=== PATIENT | female | born 1975 | race Caucasian/White ===

== ENCOUNTER 2020-08-22 06:03 | Emergency (ER) | payer OTHER ==
[2020-08-22 06:22] VITALS: BP 140/72; PULSE 81; TEMP 98.4; BMI 29.3
[2020-08-22] MEDS ORDERED: LACTATED RINGERS SOLUTION 1000 ML INFUS.BAG IV ONE (08:00)
[2020-08-22 08:29] LABS: BASO % 0.4 % (0-2.0); EOS % 1.1 % (0-4.5); HEMATOCRIT 33.1 % (32.4-45.2); HEMOGLOBIN 10.6 GM/dL (10.7-15.3); LYMPH % 21.5 % (8-40); MCH 23.6 pg (25.7-33.7); MCHC 31.9 g/dl (32.0-36.0); MONO % 5.8 % (3.8-10.2); NEUT % 71.2 % (42.8-82.8); PLATELET COUNT 377 K/MM3 (134-434); RBC 4.48 M/mm3 (3.60-5.2); RDW 16.5 % (11.6-15.6); WHITE BLOOD COUNT 4.3 K/mm3 (4.0-10.0)
[2020-08-22 08:49] LABS: CHLORIDE 107 mmol/L (98-107); SODIUM 136 mmol/L (136-145)
[2020-08-22 08:51] LABS: ALBUMIN 3.2 g/dl (3.4-5.0); ANION GAP 5 MMOL/L (8-16); BLOOD UREA NITROGEN 13.7 mg/dL (7-18); CALCIUM 8.6 mg/dL (8.5-10.1); CO2 24 mmol/L (21-32); GLUCOSE,RANDOM 286 mg/dL (74-106)
[2020-08-22 08:54] LABS: SGPT/ALT 21 U/L (13-61)
[2020-08-22 08:55] LABS: CREATININE 0.8 mg/dL (0.55-1.3); SGOT/AST 14 U/L (15-37)
[2020-08-22 08:56] LABS: BILIRUBIN,TOTAL 0.2 mg/dL (0.2-1); TOT PROT 7.6 g/dl (6.4-8.2)
[2020-08-22 08:57] LABS: ALK PHOS 85 U/L (45-117)
== END 2020-08-22 10:36 | disposition home or self-care (01) ==
LOC: JER 06:03
DX: R53.1 Weakness (principal); R73.9 Hyperglycemia, unspecified; H81.399 Other peripheral vertigo, unspecified ear
CPT/HCPCS: 36415; 80053; 82962; 84484; 85025; 93005; 93010; 99284-25

== ENCOUNTER 2021-06-19 09:29 | Observation (INO) | payer SELFPAY ==
[2021-06-19 09:46] VITALS: BMI 28.7
[2021-06-19] MEDS ORDERED: ACETAMINOPHEN 500 MG TABLET (FP) PO ONE (10:35)
[2021-06-19] MEDS ORDERED: ACETAMINOPHEN 325 MG TABLET (FP) ONE (10:54)
[2021-06-19 11:18] LABS: BASO % 0.5 % (0-2.0); EOS % 2.8 % (0-4.5); HEMATOCRIT 29.6 % (32.4-45.2); HEMOGLOBIN 9.3 GM/dL (10.7-15.3); LYMPH % 23.8 % (8-40); MCH 23.1 pg (25.7-33.7); MCHC 31.3 g/dl (32.0-36.0); MEAN CELL VOLUME 73.9 fl (80-96); MONO % 5.6 % (3.8-10.2); NEUT % 67.3 % (42.8-82.8); PLATELET COUNT 500 10^3/uL (134-434); RBC 4.01 M/mm3 (3.60-5.2); WHITE BLOOD COUNT 9.8 K/mm3 (4.0-10.0)
[2021-06-19 11:25] LABS: INR 1.03 (0.83-1.09); PROTHROMBIN TIME (PATIENT) 11.9 SEC (9.7-13.0)
[2021-06-19 11:28] LABS: ACTIVATED PTT 31.7 SECONDS (25.2-36.5)
[2021-06-19 11:30] LABS: CALCIUM 8.9 mg/dL (8.5-10.1)
[2021-06-19 11:31] LABS: BLOOD UREA NITROGEN 17.9 mg/dL (7-18)
[2021-06-19 11:34] LABS: CREATININE 0.8 mg/dL (0.55-1.3)
[2021-06-19 11:35] LABS: TOT PROT 7.1 g/dl (6.4-8.2)
[2021-06-19 11:36] LABS: BILIRUBIN,TOTAL 0.2 mg/dL (0.2-1)
[2021-06-19 11:39] LABS: N-TERMINAL BNP 213.1 pg/ml (5-125)
[2021-06-19] MEDS ORDERED: ASPIRIN 81 MG CHEWABLE TABLETS PO ONE (13:32)
[2021-06-19] MEDS ORDERED: ASPIRIN 81 MG CHEWABLE TABLETS ONE (13:47)
[2021-06-19] MEDS ORDERED: ACETAMINOPHEN 325 MG TABLET (FP) PO PRN (15:08)
[2021-06-19] MEDS ORDERED: LOSARTAN POTASSIUM 50 MG TABLET PO SCH (15:15)
[2021-06-19] MEDS ORDERED: FAMOTIDINE 20 MG TABLET PO SCH (15:15)
[2021-06-19] MEDS ORDERED: LOSARTAN POTASSIUM 50 MG TABLET ONE (16:19)
[2021-06-19] MEDS ORDERED: FAMOTIDINE 20 MG TABLET ONE (16:19)
[2021-06-19] MEDS ORDERED: HEPARIN NA (PORCINE) 5,000 UNITS/ML 1ML VIAL IVPUSH PRN ×2 (17:39)
[2021-06-19] MEDS ORDERED: HEPARIN NA (PORCINE) 5,000 UNITS/ML 1ML VIAL IVPUSH ONE (17:39)
[2021-06-19] MEDS ORDERED: CLOPIDOGREL BISULFATE 300 MG TABLET PO ONE (17:39)
[2021-06-19] MEDS ORDERED: ATORVASTATIN CA 40 MG TABLET (FP) PO ONE (17:42)
[2021-06-19] MEDS ORDERED: CLOPIDOGREL BISULFATE 300 MG TABLET ONE (17:53)
[2021-06-19] MEDS ORDERED: HEPARIN NA (PORCINE) 5,000 UNITS/ML 1ML VIAL ONE (17:54)
[2021-06-19] MEDS ORDERED: ATORVASTATIN CA 40 MG TABLET (FP) ONE (18:02)
[2021-06-19] MEDS ORDERED: HEPARIN - 25,000 UNIT in SODIUM CHLORIDE 495 ML IV SCH (18:30)
[2021-06-19 19:28] VITALS: BP 160/81; PULSE 89
[2021-06-19 19:32] VITALS: TEMP 98
[2021-06-19] MEDS ORDERED: ATORVASTATIN CA 40 MG TABLET (FP) PO SCH (22:00)
[2021-06-20] MEDS ORDERED: ASPIRIN COATED 81 MG TABLET.EC PO SCH (10:00)
== END 2021-06-19 18:30 | disposition short-term general hospital (02) ==
LOC: JER 09:29 → UNDOADMOB 12:56 → INTOOBSV 12:56 → JERBED 12:56
PROVIDERS: ADMIT Family Medicine; ATTEND Family Medicine
PROC: 3E033GC Introduction of Other Therapeutic Substance into Peripheral Vein, Percutaneous Approach (ICD-10-PCS; principal; 2021-06-19)
DX: I21.3 ST elevation (STEMI) myocardial infarction of unspecified site (principal); I10 Essential (primary) hypertension; E11.9 Type 2 diabetes mellitus without complications; R07.9 Chest pain, unspecified; R60.0 Localized edema; Z87.891 Personal history of nicotine dependence; R06.00 Dyspnea, unspecified; R06.01 Orthopnea; Z88.0 Allergy status to penicillin
CPT/HCPCS: 36415; 71045-TC-FY; 80053; 82550; 82553; 83880; 84484; 85025; 85610; 85730; 93005; 93010; 99285-25; C9803; G0378; J1644; U0003; U0005

== ENCOUNTER 2021-07-02 19:50 | Observation (INO) | payer OTHER ==
[2021-07-02 20:09] VITALS: BP 135/89; PULSE 90; TEMP 98.4; BMI 27.9
[2021-07-02 21:04] LABS: BASO % 1.2 % (0-2.0); EOS % 3.1 % (0-4.5); HEMATOCRIT 28.6 % (32.4-45.2); HEMOGLOBIN 9.2 GM/dL (10.7-15.3); LYMPH % 21.6 % (8-40); MCH 23.2 pg (25.7-33.7); MEAN CELL VOLUME 72.4 fl (80-96); MEAN PLT VOLUME 7.5 fl (7.5-11.1); MONO % 4.6 % (3.8-10.2); NEUT % 69.5 % (42.8-82.8); PLATELET COUNT 538 10^3/uL (134-434); RBC 3.95 M/mm3 (3.60-5.2); RDW 17.1 % (11.6-15.6); WHITE BLOOD COUNT 11.5 K/mm3 (4.0-10.0)
[2021-07-02] MEDS ORDERED: FAMOTIDINE 20 MG TABLET PO ONE (21:08)
[2021-07-02] MEDS ORDERED: MAG HYDROX/AL HYDROX/SIMETH 30 ML UNIT-DOSE CUP PO ONE (21:08)
[2021-07-02] MEDS ORDERED: FAMOTIDINE 20 MG TABLET ONE (21:11)
[2021-07-02] MEDS ORDERED: MAG HYDROX/AL HYDROX/SIMETH 30 ML UNIT-DOSE CUP ONE (21:11)
[2021-07-02 21:27] LABS: BLOOD UREA NITROGEN 26.3 mg/dL (7-18); CALCIUM 9.7 mg/dL (8.5-10.1); INR 1.03 (0.83-1.09); MAGNESIUM 2.1 mg/dL (1.8-2.4); PROTHROMBIN TIME (PATIENT) 11.9 SEC (9.7-13.0)
[2021-07-02 21:29] LABS: ACTIVATED PTT 33.5 SECONDS (25.2-36.5)
[2021-07-02 21:32] LABS: BILIRUBIN,TOTAL 0.2 mg/dL (0.2-1); TOT PROT 7.3 g/dl (6.4-8.2)
[2021-07-04 10:08] LABS: SARS-CoV-2 NAA Not Detected (Not Detected)
== END 2021-07-03 01:47 | disposition left against medical advice (07) ==
LOC: JER 19:50 → JERFT 19:50 → JERBED 22:17
PROVIDERS: ADMIT Hospitalist; ATTEND Hospitalist
DX: R07.9 Chest pain, unspecified (principal); I10 Essential (primary) hypertension; E11.9 Type 2 diabetes mellitus without complications; Z95.5 Presence of coronary angioplasty implant and graft; Z88.0 Allergy status to penicillin; F41.9 Anxiety disorder, unspecified; Z87.891 Personal history of nicotine dependence
CPT/HCPCS: 36415; 71046-TC-FY; 80053; 83735; 84484; 85025; 85610; 85730; 93005; 93010; 99285-25; C9803; G0378; U0003; U0005

== ENCOUNTER 2021-08-28 11:34 | Observation (INO) | payer OTHER ==
[2021-08-28] MEDS ORDERED: ACETAMINOPHEN 325 MG TABLET (FP) PO ONE (12:21)
[2021-08-28] MEDS ORDERED: ASPIRIN 81 MG CHEWABLE TABLETS PO ONE (12:25)
[2021-08-28] MEDS ORDERED: ASPIRIN 81 MG CHEWABLE TABLETS ONE (12:36)
[2021-08-28] MEDS ORDERED: ACETAMINOPHEN 325 MG TABLET (FP) ONE (12:36)
[2021-08-28 13:04] LABS: BASO % 0.6 % (0-2.0); EOS % 2.8 % (0-4.5); HEMATOCRIT 26.6 % (32.4-45.2); HEMOGLOBIN 8.7 GM/dL (10.7-15.3); LYMPH % 23.5 % (8-40); MCHC 32.7 g/dl (32.0-36.0); MEAN CELL VOLUME 70.5 fl (80-96); MEAN PLT VOLUME 7.6 fl (7.5-11.1); MONO % 5.8 % (3.8-10.2); NEUT % 67.3 % (42.8-82.8); PLATELET COUNT 430 10^3/uL (134-434); RBC 3.77 M/mm3 (3.60-5.2); RDW 16.6 % (11.6-15.6); WHITE BLOOD COUNT 9.6 K/mm3 (4.0-10.0)
[2021-08-28 13:06] LABS: INR 1.02 (0.83-1.09); PROTHROMBIN TIME (PATIENT) 11.7 SEC (9.7-13.0)
[2021-08-28 13:12] LABS: CALCIUM 9.3 mg/dL (8.5-10.1)
[2021-08-28 13:13] LABS: BLOOD UREA NITROGEN 23.3 mg/dL (7-18)
[2021-08-28 13:16] LABS: CREATININE 0.9 mg/dL (0.55-1.3)
[2021-08-28 13:17] LABS: TOT PROT 6.9 g/dl (6.4-8.2)
[2021-08-28 13:18] LABS: BILIRUBIN,TOTAL 0.3 mg/dL (0.2-1)
[2021-08-28] MEDS: INSULIN SLIDING SCALE (NOVOLOG) 1 VIAL SQ SCH ×2 (17:08→22:08)
[2021-08-28] MEDS ORDERED: ATORVASTATIN CA 80 MG TABLET (FP) PO SCH (22:00)
[2021-08-28] MEDS: FAMOTIDINE 20 MG TABLET PO SCH (22:05)
[2021-08-28 22:55] VITALS: BMI 30.7
[2021-08-29] MEDS: INSULIN SLIDING SCALE (NOVOLOG) 1 VIAL SQ SCH ×2 (06:16→11:13)
[2021-08-29 08:48] LABS: BASO % 1.2 % (0-2.0); HEMATOCRIT 28.4 % (32.4-45.2); HEMOGLOBIN 8.9 GM/dL (10.7-15.3); LYMPH % 21.9 % (8-40); MCH 22.4 pg (25.7-33.7); MCHC 31.5 g/dl (32.0-36.0); MEAN CELL VOLUME 71.3 fl (80-96); MEAN PLT VOLUME 7.8 fl (7.5-11.1); MONO % 4.1 % (3.8-10.2); NEUT % 69.8 % (42.8-82.8); PLATELET COUNT 430 10^3/uL (134-434); RBC 3.98 M/mm3 (3.60-5.2); RDW 16.8 % (11.6-15.6); WHITE BLOOD COUNT 10.4 K/mm3 (4.0-10.0)
[2021-08-29 09:09] LABS: ALBUMIN 2.9 g/dl (3.4-5.0); CALCIUM 8.9 mg/dL (8.5-10.1)
[2021-08-29 09:10] LABS: BLOOD UREA NITROGEN 19.9 mg/dL (7-18); MAGNESIUM 1.9 mg/dL (1.8-2.4)
[2021-08-29 09:13] LABS: CREATININE 0.8 mg/dL (0.55-1.3)
[2021-08-29 09:14] LABS: BILIRUBIN,TOTAL 0.3 mg/dL (0.2-1); TOT PROT 6.8 g/dl (6.4-8.2)
[2021-08-29] MEDS ORDERED: metoPROLOL SUCCINATE 25 MG TAB.SR.24H (FP) PO SCH (10:00)
[2021-08-29] MEDS ORDERED: CLOPIDOGREL BISULFATE 75 MG TABLET (FP) PO SCH (10:00)
[2021-08-29] MEDS ORDERED: INSULIN (LEVEMIR) 100 UNITS/ML UNITS SQ SCH (10:00)
[2021-08-29] MEDS ORDERED: ASPIRIN 81 MG CHEWABLE TABLETS PO SCH (10:00)
[2021-08-29] MEDS: FAMOTIDINE 20 MG TABLET PO SCH (10:34)
[2021-08-29 15:30] VITALS: BP 126/65; PULSE 82; TEMP 98.2
== END 2021-08-29 16:53 | disposition home or self-care (01) ==
LOC: JER 11:34 → JERBED 12:26 → J4W 18:44
PROVIDERS: ADMIT Internal Medicine; ATTEND Nurse Practitioner Acute Care
PROC: 3E013VG Introduction of Insulin into Subcutaneous Tissue, Percutaneous Approach (ICD-10-PCS; principal; 2021-08-28)
DX: I25.10 Atherosclerotic heart disease of native coronary artery without angina pectoris (principal); E11.9 Type 2 diabetes mellitus without complications; I25.2 Old myocardial infarction; I11.9 Hypertensive heart disease without heart failure; R07.9 Chest pain, unspecified; Z88.0 Allergy status to penicillin
CPT/HCPCS: 36415; 71045-TC-FY; 80053; 82728; 82962; 83540; 83550; 83735; 84484; 84703; 85025; 85610; 85730; 86850; 86900; 86901; 93005; 93010; 96372; 99285-25; C9803-CS; G0378; U0003; U0005

== ENCOUNTER 2022-06-02 12:09 | Emergency (ER) | payer OTHER ==
[2022-06-02 12:21] VITALS: RESP 18; TEMP 98.7; BMI 28.2
[2022-06-02] MEDS ORDERED: METOCLOPRAMIDE HCL INJECTION 10 MG/2 ML VIAL IVPUSH ONE (12:56)
[2022-06-02] MEDS ORDERED: ACETAMINOPHEN 1000 MG/100 ML BAG IVPB ONE (12:56)
[2022-06-02] MEDS ORDERED: SODIUM CHLORIDE 0.9% 500 ML INFUS.BAG IV ONE (12:56)
[2022-06-02] MEDS ORDERED: METOCLOPRAMIDE HCL INJECTION 10 MG/2 ML VIAL ONE (13:09)
[2022-06-02] MEDS ORDERED: ACETAMINOPHEN INJECTION 100 ML IVPB ONE (13:10)
[2022-06-02 13:38] LABS: BASO % 1.3 % (0-2.0); EOS % 2.6 % (0-4.5); HEMATOCRIT 30.4 % (32.4-45.2); HEMOGLOBIN 9.8 GM/dL (10.7-15.3); LYMPH % 15.6 % (8-40); MCH 23.1 pg (25.7-33.7); MCHC 32.2 g/dl (32.0-36.0); MEAN CELL VOLUME 71.7 fl (80-96); MEAN PLT VOLUME 7.7 fl (7.5-11.1); MONO % 3.5 % (3.8-10.2); PLATELET COUNT 549 10^3/uL (134-434); RBC 4.24 M/mm3 (3.60-5.2); RDW 16.7 % (11.6-15.6); WHITE BLOOD COUNT 12.6 K/mm3 (4.0-10.0)
[2022-06-02 14:03] LABS: CALCIUM 9.1 mg/dL (8.5-10.1)
[2022-06-02 14:04] LABS: ALBUMIN 2.7 g/dl (3.4-5.0); BLOOD UREA NITROGEN 22.8 mg/dL (7-18)
[2022-06-02 14:08] LABS: BILIRUBIN,TOTAL 0.2 mg/dL (0.2-1); TOT PROT 7.1 g/dl (6.4-8.2)
[2022-06-02] MEDS ORDERED: KETOROLAC TROMETHAMINE 30 MG/1 ML VIAL IVPUSH ONE (15:39)
[2022-06-02] MEDS ORDERED: KETOROLAC TROMETHAMINE 30 MG/1 ML VIAL ONE (16:04)
[2022-06-02 16:52] VITALS: BP 118/63; PULSE 83
== END 2022-06-02 16:53 | disposition home or self-care (01) ==
LOC: JER 12:09
PROC: 3E0333Z Introduction of Anti-inflammatory into Peripheral Vein, Percutaneous Approach (ICD-10-PCS; principal; 2022-06-02)
PROC: 3E0333Z Introduction of Anti-inflammatory into Peripheral Vein, Percutaneous Approach (ICD-10-PCS; 2022-06-02)
PROC: 3E033GC Introduction of Other Therapeutic Substance into Peripheral Vein, Percutaneous Approach (ICD-10-PCS; 2022-06-02)
DX: R51.9 Headache, unspecified (principal)
CPT/HCPCS: 36415; 70450-TC; 71046-TC-FY; 80053; 82010; 83690; 84484; 85025; 93005; 93010; 99285-25

== ENCOUNTER 2022-09-26 09:07 | Emergency (ER) | payer OTHER ==
[2022-09-26 09:15] VITALS: BMI 28.2
[2022-09-26 10:34] LABS: BASO % 0.7 % (0-2.0); EOS % 2.4 % (0-4.5); HEMATOCRIT 28.4 % (32.4-45.2); HEMOGLOBIN 9.2 GM/dL (10.7-15.3); LYMPH % 20.1 % (8-40); MCH 22.9 pg (25.7-33.7); MCHC 32.3 g/dl (32.0-36.0); MEAN CELL VOLUME 70.9 fl (80-96); MEAN PLT VOLUME 8.4 fl (7.5-11.1); NEUT % 71.8 % (42.8-82.8); PLATELET COUNT 406 10^3/uL (134-434); RDW 17.3 % (11.6-15.6)
[2022-09-26 10:53] LABS: ALBUMIN 2.4 g/dl (3.4-5.0); CALCIUM 8.8 mg/dL (8.5-10.1)
[2022-09-26 10:54] LABS: BLOOD UREA NITROGEN 23.9 mg/dL (7-18)
[2022-09-26 10:58] LABS: BILIRUBIN,TOTAL 0.2 mg/dL (0.2-1); TOT PROT 6.4 g/dl (6.4-8.2)
[2022-09-26 11:02] LABS: N-TERMINAL BNP 78.4 pg/ml (5-125)
[2022-09-26 12:17] VITALS: BP 149/82; PULSE 88; RESP 20; TEMP 97.2
== END 2022-09-26 14:36 | disposition home or self-care (01) ==
LOC: JER 09:07
DX: R07.9 Chest pain, unspecified (principal)
CPT/HCPCS: 36415; 71045-TC-FY; 80053; 82962; 83880; 84484; 85025; 93005; 93010; 99285-25

== ENCOUNTER 2023-04-19 21:58 | Emergency (ER) | payer OTHER ==
[2023-04-19 22:04] VITALS: RESP 20; TEMP 98.3; BMI 29.0
[2023-04-19] MEDS ORDERED: LACTATED RINGERS SOLUTION 1000 ML INFUS.BAG IV ONE (22:39)
[2023-04-19] MEDS ORDERED: ONDANSETRON 4 MG/2 ML VIAL IVPUSH ONE (22:39)
[2023-04-19 22:46] VITALS: BP 151/78; PULSE 95
[2023-04-19] MEDS ORDERED: ONDANSETRON 4 MG/2 ML VIAL ONE (22:53)
[2023-04-19 23:09] LABS: BASO % 0.3 % (0-2.0); EOS % 3.6 % (0-4.5); HEMATOCRIT 28.1 % (32.4-45.2); HEMOGLOBIN 8.8 GM/dL (10.7-15.3); LYMPH % 21.3 % (8-40); MCH 22.4 pg (25.7-33.7); MCHC 31.3 g/dl (32.0-36.0); MEAN CELL VOLUME 71.6 fl (80-96); MEAN PLT VOLUME 7.9 fl (7.5-11.1); NEUT % 69.8 % (42.8-82.8); PLATELET COUNT 440 10^3/uL (134-434); RBC 3.92 M/mm3 (3.60-5.2); RDW 17.5 % (11.6-15.6); WHITE BLOOD COUNT 8.8 K/mm3 (4.0-10.0)
[2023-04-19 23:24] LABS: INR 1.05 (0.83-1.09); PROTHROMBIN TIME (PATIENT) 12.2 SEC (9.7-13.0)
[2023-04-19 23:33] LABS: CHLORIDE 103 mmol/L (98-107); POTASSIUM 4.2 mmol/L (3.5-5.1); SODIUM 136 mmol/L (136-145)
[2023-04-19 23:34] LABS: CALCIUM 8.7 mg/dL (8.5-10.1)
[2023-04-19 23:35] LABS: ALBUMIN 2.2 g/dl (3.4-5.0); ANION GAP 5 mmol/L (4-13); BLOOD UREA NITROGEN 20.2 mg/dL (7-18); CO2 28 mmol/L (21-32); GLUCOSE,RANDOM 344 mg/dL (74-106); MAGNESIUM 1.7 mg/dL (1.8-2.4)
[2023-04-19 23:38] LABS: CREATININE 1.2 mg/dL (0.55-1.3); SGOT/AST 14 U/L (15-37); SGPT/ALT 20 U/L (13-61)
[2023-04-19 23:40] LABS: BILIRUBIN,TOTAL < 0.1 mg/dL (0.2-1); TOT PROT 6.2 g/dl (6.4-8.2)
[2023-04-19 23:41] LABS: ALK PHOS 122 U/L (45-117)
[2023-04-19] MEDS ORDERED: MAGNESIUM SULF 50% (8.12 MEQ/2 ML-1 GM VIAL) IVPB ONE (23:42)
[2023-04-20] MEDS ORDERED: MAGNESIUM SULFATE IN WATER 2 GM/50 ML IVPB IVPB ONE (00:15)
[2023-04-20 01:24] LABS: EPI CELLS 20 /uL (0-25.1); HYALINE CASTS 1 /uL (0-3.1); PH,URINE 7.5 (5.0-8.0); URINE APPEARANCE CLEAR; URINE BACTERIA 2444 /uL (0-1359); URINE BILIRUBIN NEGATIVE (NEGATIVE); URINE COLOR YELLOW; URINE GLUCOSE (UA) 3+ (NEGATIVE); URINE KETONE NEGATIVE (NEGATIVE); URINE LEUK ESTERASE NEGATIVE (NEGATIVE); URINE NITRITE NEGATIVE (NEGATIVE); URINE PROTEIN 3+ (NEGATIVE); URINE UROBILINOGEN 0.2 mg/dL (0.2-1.0); URINE WBC 43 /uL (0-25.8)
[2023-04-20] MEDS ORDERED: SULFAMETHOXAZOLE/TRIMETHOPRIM 800MG/160MG D.S. TABLET PO ONE (01:30)
[2023-04-20] MEDS ORDERED: SULFAMETHOXAZOLE/TRIMETHOPRIM 800MG/160MG D.S. TABLET ONE (01:49)
[2023-04-20 02:10] LABS: URINE RBC 20.3 /uL (0-23.9)
== END 2023-04-20 01:54 | disposition home or self-care (01) ==
LOC: JER 21:58
PROC: 3E033GC Introduction of Other Therapeutic Substance into Peripheral Vein, Percutaneous Approach (ICD-10-PCS; principal; 2023-04-19)
PROC: 3E033GC Introduction of Other Therapeutic Substance into Peripheral Vein, Percutaneous Approach (ICD-10-PCS; 2023-04-20)
DX: R42 Dizziness and giddiness (principal); R11.0 Nausea; R53.1 Weakness; E11.65 Type 2 diabetes mellitus with hyperglycemia; N39.0 Urinary tract infection, site not specified; R68.2 Dry mouth, unspecified; H11.9 Unspecified disorder of conjunctiva; R31.9 Hematuria, unspecified; Z20.822 Contact with and (suspected) exposure to COVID-19
CPT/HCPCS: 0241U-QW; 36415; 71045-TC-FY; 80053; 81003; 83735; 84484; 84703; 85025; 85610; 85730; 87086; 93005; 93010; 99285-25

== ENCOUNTER 2024-07-10 08:50 | Inpatient (IN) | payer OTHER ==
[2024-07-10] MEDS ORDERED: FAMOTIDINE 20 MG/50 ML IVPB 20 MG/50 ML MG IVPB ONE (09:25)
[2024-07-10] MEDS ORDERED: ONDANSETRON 4 MG/2 ML VIAL ONE ×2 (09:25→15:10)
[2024-07-10] MEDS: SODIUM CHLORIDE 0.9% 500 ML INFUS.BAG IV ONE (09:52)
[2024-07-10] MEDS: ONDANSETRON 4 MG/2 ML VIAL IVPB ONE ×2 (09:52→15:10)
[2024-07-10] MEDS: FAMOTIDINE 20 MG/50 ML IVPB 20 MG/50 ML MG IVPB ONE (09:52)
[2024-07-10] MEDS ORDERED: ACETAMINOPHEN INJECTION 100 ML ONE (09:59)
[2024-07-10 10:01] LABS: BASO % 0.7 % (0-2.0); EOS % 3.2 % (0-4.5); HEMATOCRIT 21.4 % (32.4-45.2); HEMOGLOBIN 7.1 GM/dL (10.7-15.3); LYMPH % 20.1 % (8-40); MCH 26.1 pg (25.7-33.7); MCHC 33.4 g/dl (32.0-36.0); MONO % 4.2 % (3.8-10.2); NEUT % 71.8 % (42.8-82.8); PLATELET COUNT 501 10^3/uL (134-434); RBC 2.74 M/mm3 (3.60-5.2); RDW 17.7 % (11.6-15.6); WHITE BLOOD COUNT 9.1 K/mm3 (4.0-10.0)
[2024-07-10] MEDS: ACETAMINOPHEN 1000 MG/100 ML BAG IVPB ONE ×2 (10:06→21:25)
[2024-07-10 10:19] LABS: EPI CELLS 17 /uL (0-25.1); HYALINE CASTS 0 /uL (0-3.1); PH,URINE 6.5 (5.0-8.0); URINE APPEARANCE CLEAR; URINE BACTERIA 1028 /uL (0-1359); URINE BILIRUBIN NEGATIVE (NEGATIVE); URINE COLOR YELLOW; URINE GLUCOSE (UA) 1+ (NEGATIVE); URINE KETONE TRACE (NEGATIVE); URINE LEUK ESTERASE NEGATIVE (NEGATIVE); URINE NITRITE NEGATIVE (NEGATIVE); URINE PROTEIN 4+ (NEGATIVE); URINE RBC 29 /uL (0-23.9); URINE UROBILINOGEN 0.2 mg/dL (0.2-1.0); URINE WBC 17 /uL (0-25.8)
[2024-07-10 10:22] LABS: POTASSIUM 4.3 mmol/L (3.5-5.1)
[2024-07-10 10:25] LABS: ALBUMIN 2.2 g/dl (3.4-5.0); BLOOD UREA NITROGEN 53.6 mg/dL (7-18); CALCIUM 8.6 mg/dL (8.5-10.1); MAGNESIUM 1.9 mg/dL (1.8-2.4)
[2024-07-10 10:28] LABS: CREATININE 5.4 mg/dL (0.55-1.3)
[2024-07-10 10:29] LABS: BILIRUBIN,TOTAL 0.3 mg/dL (0.2-1)
[2024-07-10 11:58] LABS: INR 1.1 (0.83-1.09)
[2024-07-10 12:01] LABS: ACTIVATED PTT 35.2 SECONDS (25.2-36.5)
[2024-07-10] MEDS ORDERED: amLODIPine BESYLATE 10 MG TABLET (FP) ONE (12:16)
[2024-07-10] MEDS ORDERED: metoPROLOL SUCCINATE 25 MG TAB.SR.24H (FP) PO ONE (12:16)
[2024-07-10] MEDS: amLODIPine BESYLATE 10 MG TABLET (FP) PO ONE (12:29)
[2024-07-10] MEDS: metoPROLOL SUCCINATE 25 MG TAB.SR.24H (FP) PO ONE (12:29)
[2024-07-10] MEDS: SODIUM CHLORIDE 0.45% 1,000 ML IV SCH (17:20)
[2024-07-10] MEDS: INSULIN ASPART SLIDING SCALE (NOVOLOG) 1 VIAL SQ SCH (17:20)
[2024-07-10 17:46] VITALS: BMI 30.3
[2024-07-10] MEDS: hydrALAZINE HCL 20 MG/ML VIAL IVPUSH PRN (17:56)
[2024-07-10 18:59] LABS: EPI CELLS >36 /uL (0-25.1); HYALINE CASTS 18 /uL (0-3.1); PH,URINE 6.5 (5.0-8.0); URINE APPEARANCE CLEAR; URINE BACTERIA 1987 /uL (0-1359); URINE BILIRUBIN NEGATIVE (NEGATIVE); URINE COLOR YELLOW; URINE GLUCOSE (UA) 2+ (NEGATIVE); URINE KETONE NEGATIVE (NEGATIVE); URINE LEUK ESTERASE NEGATIVE (NEGATIVE); URINE NITRITE NEGATIVE (NEGATIVE); URINE PROTEIN 4+ (NEGATIVE); URINE UROBILINOGEN 0.2 mg/dL (0.2-1.0)
[2024-07-10 19:04] LABS: URINE RBC 142.8 /uL (0-23.9); URINE WBC 240.1 /uL (0-25.8)
[2024-07-10] MEDS: LABETALOL HCL 20 MG/4 ML VIAL IVPUSH ONE (21:22)
[2024-07-10] MEDS: FAMOTIDINE 20 MG TABLET PO SCH (21:26)
[2024-07-11] MEDS: ONDANSETRON 4 MG/2 ML VIAL IVPUSH ONE (01:21)
[2024-07-11] MEDS ORDERED: metoPROLOL SUCCINATE 25 MG TAB.SR.24H (FP) PO SCH (10:00)
[2024-07-11 10:01] LABS: HEMATOCRIT 27.1 % (32.4-45.2); HEMOGLOBIN 8.9 GM/dL (10.7-15.3); MCH 26.3 pg (25.7-33.7); MCHC 32.8 g/dl (32.0-36.0); MEAN CELL VOLUME 80.1 fl (80-96); MEAN PLT VOLUME 6.9 fl (7.5-11.1); PLATELET COUNT 486 10^3/uL (134-434); RBC 3.39 M/mm3 (3.60-5.2); RDW 16.8 % (11.6-15.6); WHITE BLOOD COUNT 11.6 K/mm3 (4.0-10.0)
[2024-07-11 10:20] LABS: POTASSIUM 4.4 mmol/L (3.5-5.1)
[2024-07-11 10:22] LABS: BLOOD UREA NITROGEN 49.8 mg/dL (7-18); CALCIUM 8.8 mg/dL (8.5-10.1); MAGNESIUM 1.9 mg/dL (1.8-2.4)
[2024-07-11] MEDS: ONDANSETRON *ODT* 4 MG TABLET SL ONE (10:24)
[2024-07-11] MEDS: amLODIPine BESYLATE 10 MG TABLET (FP) PO SCH (10:24)
[2024-07-11] MEDS: metoPROLOL SUCCINATE 25 MG TAB.SR.24H (FP) PO SCH (10:24)
[2024-07-11 10:26] LABS: CREATININE 5.2 mg/dL (0.55-1.3)
[2024-07-11] MEDS: ONDANSETRON *ODT* 4 MG TABLET SL SCH (12:05)
[2024-07-11] MEDS: SODIUM CHLORIDE 0.45% 1,000 ML IV SCH ×2 (13:26→17:05)
[2024-07-11] MEDS: ACETAMINOPHEN 1000 MG/100 ML BAG IVPB PRN (13:29)
[2024-07-11] MEDS: MELATONIN 1 MG TABLET PO SCH (22:18)
[2024-07-11] MEDS: HEPARIN NA (PORCINE) 5,000 UNITS/ML 1ML VIAL SQ SCH (22:19)
[2024-07-11] MEDS: LABETALOL HCL 100 MG TABLET (FP) PO SCH (22:19)
[2024-07-11] MEDS: INSULIN (LEVEMIR) 100 UNITS/ML UNITS SQ SCH (22:20)
[2024-07-12 08:41] LABS: BASO % 0.7 % (0-2.0); EOS % 2.1 % (0-4.5); HEMATOCRIT 23.4 % (32.4-45.2); HEMOGLOBIN 7.6 GM/dL (10.7-15.3); LYMPH % 20.3 % (8-40); MCH 26.3 pg (25.7-33.7); MCHC 32.6 g/dl (32.0-36.0); MEAN CELL VOLUME 80.5 fl (80-96); MEAN PLT VOLUME 7.1 fl (7.5-11.1); MONO % 4.2 % (3.8-10.2); NEUT % 72.7 % (42.8-82.8); PLATELET COUNT 440 10^3/uL (134-434); RBC 2.91 M/mm3 (3.60-5.2); RDW 17.1 % (11.6-15.6); WHITE BLOOD COUNT 8.5 K/mm3 (4.0-10.0)
[2024-07-12 09:06] LABS: POTASSIUM 4.6 mmol/L (3.5-5.1)
[2024-07-12 09:16] LABS: BLOOD UREA NITROGEN 44.8 mg/dL (7-18); CALCIUM 8.5 mg/dL (8.5-10.1); MAGNESIUM 1.8 mg/dL (1.8-2.4)
[2024-07-12 09:19] LABS: CREATININE 5.2 mg/dL (0.55-1.3)
[2024-07-12 09:20] LABS: BILIRUBIN,TOTAL 0.4 mg/dL (0.2-1); TOT PROT 5.4 g/dl (6.4-8.2)
[2024-07-12] MEDS: MULTIVITAMINS (DAILY MVI) TABLET (FP) PO SCH (09:58)
[2024-07-12] MEDS: IRON SUCROSE INJECTION 200 MG in SODIUM CHLORIDE 100 ML IVPB ONE (14:38)
[2024-07-13 08:32] LABS: BASO % 1.2 % (0-2.0); EOS % 5.6 % (0-4.5); HEMATOCRIT 23.4 % (32.4-45.2); HEMOGLOBIN 7.8 GM/dL (10.7-15.3); LYMPH % 24.6 % (8-40); MCH 26.7 pg (25.7-33.7); MCHC 33.2 g/dl (32.0-36.0); MEAN CELL VOLUME 80.5 fl (80-96); MEAN PLT VOLUME 6.9 fl (7.5-11.1); MONO % 6.1 % (3.8-10.2); NEUT % 62.5 % (42.8-82.8); PLATELET COUNT 456 10^3/uL (134-434); RBC 2.91 M/mm3 (3.60-5.2); WHITE BLOOD COUNT 8.1 K/mm3 (4.0-10.0)
[2024-07-13 08:56] LABS: ALBUMIN 1.9 g/dl (3.4-5.0); BLOOD UREA NITROGEN 42.3 mg/dL (7-18); CALCIUM 8.2 mg/dL (8.5-10.1); MAGNESIUM 1.7 mg/dL (1.8-2.4)
[2024-07-13 08:59] LABS: CREATININE 5.5 mg/dL (0.55-1.3)
[2024-07-13 09:01] LABS: BILIRUBIN,TOTAL 0.2 mg/dL (0.2-1); TOT PROT 5.4 g/dl (6.4-8.2)
[2024-07-13] MEDS: PANTOPRAZOLE 40 MG TABLET PO SCH (10:21)
[2024-07-13 12:03] LABS: HCV DIAGNOSTIC IN-HOUSE W/RFLX NON-REACTIVE (NONREACTIVE)
[2024-07-13 20:53] LABS: EPI CELLS 9 /uL (0-25.1); HYALINE CASTS 1 /uL (0-3.1); PH,URINE 6.5 (5.0-8.0); URINE APPEARANCE CLEAR; URINE BACTERIA 46 /uL (0-1359); URINE BILIRUBIN NEGATIVE (NEGATIVE); URINE COLOR YELLOW; URINE GLUCOSE (UA) 1+ (NEGATIVE); URINE KETONE NEGATIVE (NEGATIVE); URINE LEUK ESTERASE NEGATIVE (NEGATIVE); URINE NITRITE NEGATIVE (NEGATIVE); URINE PROTEIN 4+ (NEGATIVE); URINE RBC 29 /uL (0-23.9); URINE UROBILINOGEN 0.2 mg/dL (0.2-1.0); URINE WBC 10 /uL (0-25.8)
[2024-07-14 08:38] LABS: POTASSIUM 4.5 mmol/L (3.5-5.1)
[2024-07-14 08:43] LABS: CALCIUM 8.2 mg/dL (8.5-10.1)
[2024-07-14 08:44] LABS: BLOOD UREA NITROGEN 44.9 mg/dL (7-18); MAGNESIUM 1.8 mg/dL (1.8-2.4)
[2024-07-14 08:45] LABS: ALBUMIN 2.1 g/dl (3.4-5.0)
[2024-07-14 08:47] LABS: CREATININE 6.1 mg/dL (0.55-1.3)
[2024-07-14 08:49] LABS: BILIRUBIN,TOTAL 0.3 mg/dL (0.2-1); TOT PROT 5.9 g/dl (6.4-8.2)
[2024-07-14] MEDS: LABETALOL HCL 200 MG TABLET (FP) PO SCH (13:41)
[2024-07-14] MEDS: LABETALOL HCL 20 MG/4 ML VIAL IVPUSH ONE (18:18)
[2024-07-14] MEDS: ACETAMINOPHEN 325 MG TABLET (FP) PO PRN (18:51)
[2024-07-14 21:06] LABS: ANTIGLOMERULAR BASEMENT MEN.AB <0.2 units (0.0-0.9); C-ANCA <1:20 titer (Neg:<1:20)
[2024-07-14] MEDS: LABETALOL HCL 100 MG TABLET (FP) PO SCH (21:42)
[2024-07-15 07:46] LABS: ABSOLUTE IMMATURE GRANULOCYTES 0.02 x10^3/uL (0.0-0.031); BASOPHILS # 0.05 x10^3/uL (0.01-0.08); EOSINOPHILS # 0.48 x10^3/uL (0.04-0.36); HEMATOCRIT 21.1 % (34.1-44.9); HEMOGLOBIN 6.6 g/dL (11.2-15.7); MCHC 31.3 g/dl (32.2-35.5); MEAN CELL VOLUME 82.4 fl (79.4-94.8); MEAN PLT VOLUME 9.1 fl (9.4-12.3); MONOCYTE # 0.61 x10^3/uL (0.24-0.86); MONOCYTE % 7.6 % (4.7-12.5); PLATELET COUNT 388 x10^3/uL (182-369); RDW 16.2 % (12.2-17.1)
[2024-07-15 07:52] LABS: INR 1.12 (0.83-1.09); PROTHROMBIN TIME (PATIENT) 12.2 SEC (9.7-13.0)
[2024-07-15 08:03] LABS: POTASSIUM 4.3 mmol/L (3.5-5.1)
[2024-07-15 08:08] LABS: BLOOD UREA NITROGEN 45.1 mg/dL (7-18); CALCIUM 8.1 mg/dL (8.5-10.1)
[2024-07-15 08:09] LABS: ALBUMIN 1.8 g/dl (3.4-5.0); MAGNESIUM 1.9 mg/dL (1.8-2.4)
[2024-07-15 08:12] LABS: CREATININE 6.1 mg/dL (0.55-1.3); PHOSPHOROUS 5.7 mg/dL (2.5-4.9)
[2024-07-15 08:13] LABS: BILIRUBIN,TOTAL 0.4 mg/dL (0.2-1); TOT PROT 4.9 g/dl (6.4-8.2)
[2024-07-15] MEDS ORDERED: EZETIMIBE 10 MG TABLET (FP) PO SCH (10:00)
[2024-07-15 22:00] LABS: HEMATOCRIT 24.4 % (34.1-44.9); HEMOGLOBIN 7.8 g/dL (11.2-15.7); MEAN CELL VOLUME 83.6 fl (79.4-94.8); MEAN PLT VOLUME 8.9 fl (9.4-12.3); PLATELET COUNT 378 x10^3/uL (182-369); RDW 15.9 % (12.2-17.1)
[2024-07-16 06:49] LABS: ABSOLUTE IMMATURE GRANULOCYTES 0.04 x10^3/uL (0.0-0.031); BASOPHILS # 0.04 x10^3/uL (0.01-0.08); EOSINOPHIL % 5.1 % (0.7-5.8); EOSINOPHILS # 0.49 x10^3/uL (0.04-0.36); HEMATOCRIT 26.1 % (34.1-44.9); HEMOGLOBIN 8.4 g/dL (11.2-15.7); MCHC 32.2 g/dl (32.2-35.5); MEAN CELL VOLUME 83.4 fl (79.4-94.8); MEAN PLT VOLUME 8.9 fl (9.4-12.3); MONOCYTE # 0.62 x10^3/uL (0.24-0.86); MONOCYTE % 6.4 % (4.7-12.5); PLATELET COUNT 412 x10^3/uL (182-369)
[2024-07-16 07:06] LABS: POTASSIUM 4.5 mmol/L (3.5-5.1)
[2024-07-16 07:08] LABS: CALCIUM 8.4 mg/dL (8.5-10.1)
[2024-07-16 07:09] LABS: BLOOD UREA NITROGEN 43.3 mg/dL (7-18); MAGNESIUM 1.7 mg/dL (1.8-2.4)
[2024-07-16 07:12] LABS: CREATININE 6.4 mg/dL (0.55-1.3); PHOSPHOROUS 6.2 mg/dL (2.5-4.9)
[2024-07-16 07:14] LABS: BILIRUBIN,TOTAL 0.4 mg/dL (0.2-1); TOT PROT 5.5 g/dl (6.4-8.2)
[2024-07-16] MEDS: MAGNESIUM OXIDE 400 MG TABLET (FP) PO ONE (10:20)
[2024-07-16] MEDS: MAGNESIUM 2GM/50ML STERILE WATER IVPB IVPB ONE (12:10)
[2024-07-17 09:06] LABS: ABSOLUTE IMMATURE GRANULOCYTES 0.03 x10^3/uL (0.0-0.031); BASOPHILS # 0.04 x10^3/uL (0.01-0.08); EOSINOPHIL % 4.8 % (0.7-5.8); EOSINOPHILS # 0.43 x10^3/uL (0.04-0.36); HEMOGLOBIN 7.3 g/dL (11.2-15.7); MCHC 31.7 g/dl (32.2-35.5); MEAN CELL VOLUME 83.9 fl (79.4-94.8); MEAN PLT VOLUME 9.3 fl (9.4-12.3); MONOCYTE # 0.57 x10^3/uL (0.24-0.86); MONOCYTE % 6.4 % (4.7-12.5); PLATELET COUNT 365 x10^3/uL (182-369); RDW 16.1 % (12.2-17.1)
[2024-07-17 09:35] LABS: POTASSIUM 4.6 mmol/L (3.5-5.1)
[2024-07-17 10:20] LABS: ALBUMIN 1.8 g/dl (3.4-5.0); CREATININE 6.4 mg/dL (0.55-1.3)
[2024-07-17 10:21] LABS: BILIRUBIN,TOTAL 0.2 mg/dL (0.2-1)
[2024-07-17 10:23] LABS: PHOSPHOROUS 6.6 mg/dL (2.5-4.9)
[2024-07-17 10:24] LABS: MAGNESIUM 2.4 mg/dL (1.8-2.4)
[2024-07-17 10:25] LABS: CALCIUM 8.3 mg/dL (8.5-10.1)
[2024-07-17 10:31] LABS: TOT PROT 4.9 g/dl (6.4-8.2)
[2024-07-18 08:39] LABS: ABSOLUTE IMMATURE GRANULOCYTES 0.02 x10^3/uL (0.0-0.031); BASOPHILS # 0.05 x10^3/uL (0.01-0.08); EOSINOPHIL % 5.9 % (0.7-5.8); EOSINOPHILS # 0.42 x10^3/uL (0.04-0.36); HEMATOCRIT 22.9 % (34.1-44.9); HEMOGLOBIN 7.2 g/dL (11.2-15.7); MCHC 31.4 g/dl (32.2-35.5); MEAN CELL VOLUME 84.5 fl (79.4-94.8); MEAN PLT VOLUME 9.4 fl (9.4-12.3); MONOCYTE # 0.56 x10^3/uL (0.24-0.86); MONOCYTE % 7.9 % (4.7-12.5); PLATELET COUNT 344 x10^3/uL (182-369)
[2024-07-18 08:47] LABS: POTASSIUM 4.5 mmol/L (3.5-5.1)
[2024-07-18 08:52] LABS: BLOOD UREA NITROGEN 45.6 mg/dL (7-18)
[2024-07-18 08:53] LABS: ALBUMIN 1.8 g/dl (3.4-5.0); MAGNESIUM 2.3 mg/dL (1.8-2.4)
[2024-07-18 08:56] LABS: BILIRUBIN,TOTAL 0.3 mg/dL (0.2-1); CREATININE 6.4 mg/dL (0.55-1.3)
[2024-07-18 08:57] LABS: PHOSPHOROUS 6.5 mg/dL (2.5-4.9)
[2024-07-18] MEDS: IRON SUCROSE INJECTION 200 MG in SODIUM CHLORIDE 100 ML IVPB ONE (12:40)
[2024-07-18] MEDS ORDERED: IRON SUCROSE INJECTION 300 MG in SODIUM CHLORIDE 235 ML IVPB SCH (16:00)
[2024-07-18] MEDS: LABETALOL HCL 200 MG TABLET (FP) PO SCH (21:27)
[2024-07-19 06:39] LABS: HEMATOCRIT 26.5 % (34.1-44.9); HEMOGLOBIN 8.4 g/dL (11.2-15.7); MCHC 31.7 g/dl (32.2-35.5); MEAN CELL VOLUME 83.9 fl (79.4-94.8); MEAN PLT VOLUME 9.3 fl (9.4-12.3); PLATELET COUNT 382 x10^3/uL (182-369); RDW 15.7 % (12.2-17.1)
[2024-07-19] MEDS: DEXTROSE 50%-WATER 25 GM/50 ML DISP.SYRIN IVPUSH ONE (06:46)
[2024-07-19 07:00] LABS: POTASSIUM 4.6 mmol/L (3.5-5.1)
[2024-07-19 07:01] LABS: BLOOD UREA NITROGEN 44.4 mg/dL (7-18); CALCIUM 8.4 mg/dL (8.5-10.1)
[2024-07-19 07:05] LABS: CREATININE 6.4 mg/dL (0.55-1.3); PHOSPHOROUS 6.6 mg/dL (2.5-4.9)
[2024-07-19] MEDS ORDERED: MIDAZOLAM HCL 2 MG/2 ML SINGLE DOSE VIAL ONE (10:21)
[2024-07-19] MEDS ORDERED: FENTANYL CITRATE/PF 50 MCG/ML VIAL ONE (10:22)
[2024-07-19] MEDS: FENTANYL CITRATE/PF 50 MCG/ML VIAL IVPUSH ONE (10:24)
[2024-07-19] MEDS: MIDAZOLAM HCL 2 MG/2 ML SINGLE DOSE VIAL IVPUSH ONE ×2 (10:24→10:46)
[2024-07-19] MEDS ORDERED: DEXTROSE 50%-WATER 25 GM/50 ML DISP.SYRIN ONE (11:41)
[2024-07-20 07:19] LABS: ABSOLUTE IMMATURE GRANULOCYTES 0.01 x10^3/uL (0.0-0.031); BASOPHILS # 0.04 x10^3/uL (0.01-0.08); EOSINOPHIL % 6.5 % (0.7-5.8); EOSINOPHILS # 0.47 x10^3/uL (0.04-0.36); HEMATOCRIT 24.8 % (34.1-44.9); HEMOGLOBIN 7.8 g/dL (11.2-15.7); MCHC 31.5 g/dl (32.2-35.5); MEAN CELL VOLUME 83.8 fl (79.4-94.8); MEAN PLT VOLUME 9.2 fl (9.4-12.3); MONOCYTE # 0.51 x10^3/uL (0.24-0.86); MONOCYTE % 7.1 % (4.7-12.5); PLATELET COUNT 346 x10^3/uL (182-369); RDW 15.8 % (12.2-17.1)
[2024-07-20 07:35] LABS: POTASSIUM 4.8 mmol/L (3.5-5.1)
[2024-07-20 07:39] LABS: CALCIUM 8.4 mg/dL (8.5-10.1)
[2024-07-20 07:40] LABS: ALBUMIN 1.7 g/dl (3.4-5.0); BLOOD UREA NITROGEN 45.6 mg/dL (7-18)
[2024-07-20 07:43] LABS: BILIRUBIN,TOTAL 0.3 mg/dL (0.2-1); CREATININE 6.4 mg/dL (0.55-1.3); PHOSPHOROUS 5.9 mg/dL (2.5-4.9); TOT PROT 4.9 g/dl (6.4-8.2)
[2024-07-20] MEDS: IRON SUCROSE INJECTION 200 MG in SODIUM CHLORIDE 100 ML IVPB SCH (10:59)
[2024-07-21 08:30] LABS: POTASSIUM 4.8 mmol/L (3.5-5.1)
[2024-07-21 08:36] LABS: BLOOD UREA NITROGEN 47.8 mg/dL (7-18); CALCIUM 8.2 mg/dL (8.5-10.1)
[2024-07-21 08:37] LABS: ALBUMIN 1.8 g/dl (3.4-5.0); MAGNESIUM 1.9 mg/dL (1.8-2.4)
[2024-07-21 08:40] LABS: CREATININE 6.4 mg/dL (0.55-1.3); PHOSPHOROUS 6.2 mg/dL (2.5-4.9)
[2024-07-21 08:42] LABS: ABSOLUTE IMMATURE GRANULOCYTES 0.02 x10^3/uL (0.0-0.031); BASOPHILS # 0.05 x10^3/uL (0.01-0.08); EOSINOPHIL % 6.2 % (0.7-5.8); EOSINOPHILS # 0.46 x10^3/uL (0.04-0.36); HEMATOCRIT 24.4 % (34.1-44.9); HEMOGLOBIN 7.8 g/dL (11.2-15.7); MEAN PLT VOLUME 9.6 fl (9.4-12.3); MONOCYTE # 0.46 x10^3/uL (0.24-0.86); MONOCYTE % 6.2 % (4.7-12.5); PLATELET COUNT 368 x10^3/uL (182-369); RDW 15.4 % (12.2-17.1)
[2024-07-21 08:43] LABS: BILIRUBIN,TOTAL 0.3 mg/dL (0.2-1)
[2024-07-22 07:47] LABS: ABSOLUTE IMMATURE GRANULOCYTES 0.02 x10^3/uL (0.0-0.031); BASOPHILS # 0.05 x10^3/uL (0.01-0.08); EOSINOPHIL % 5.5 % (0.7-5.8); EOSINOPHILS # 0.43 x10^3/uL (0.04-0.36); HEMOGLOBIN 8.2 g/dL (11.2-15.7); MCHC 31.5 g/dl (32.2-35.5); MEAN PLT VOLUME 9.3 fl (9.4-12.3); MONOCYTE # 0.52 x10^3/uL (0.24-0.86); MONOCYTE % 6.7 % (4.7-12.5); PLATELET COUNT 388 x10^3/uL (182-369); RDW 15.5 % (12.2-17.1)
[2024-07-22 08:14] LABS: ALBUMIN 1.9 g/dl (3.4-5.0); BLOOD UREA NITROGEN 51.4 mg/dL (7-18); CALCIUM 8.4 mg/dL (8.5-10.1)
[2024-07-22 08:17] LABS: CREATININE 6.5 mg/dL (0.55-1.3)
[2024-07-22 08:18] LABS: PHOSPHOROUS 6.3 mg/dL (2.5-4.9)
[2024-07-22 08:19] LABS: BILIRUBIN,TOTAL 0.4 mg/dL (0.2-1); TOT PROT 5.3 g/dl (6.4-8.2)
[2024-07-22] MEDS: CALCIUM ACETATE 667 MG CAPSULE (FP) PO SCH (17:38)
[2024-07-22] MEDS: SODIUM BICARBONATE 650 MG TABLET PO SCH (21:15)
[2024-07-23 06:16] VITALS: RESP 16; TEMP 98.1
[2024-07-23] MEDS ORDERED: INSULIN ASPART SLIDING SCALE (NOVOLOG) 1 VIAL SQ ONE (06:43)
[2024-07-23 06:57] LABS: ABSOLUTE IMMATURE GRANULOCYTES 0.03 x10^3/uL (0.0-0.031); BASOPHILS # 0.04 x10^3/uL (0.01-0.08); EOSINOPHIL % 5.7 % (0.7-5.8); EOSINOPHILS # 0.43 x10^3/uL (0.04-0.36); HEMATOCRIT 23.1 % (34.1-44.9); HEMOGLOBIN 7.3 g/dL (11.2-15.7); MCHC 31.6 g/dl (32.2-35.5); MEAN CELL VOLUME 84.3 fl (79.4-94.8); MEAN PLT VOLUME 9.5 fl (9.4-12.3); MONOCYTE # 0.52 x10^3/uL (0.24-0.86); PLATELET COUNT 352 x10^3/uL (182-369); RDW 15.4 % (12.2-17.1)
[2024-07-23 07:23] LABS: POTASSIUM 4.8 mmol/L (3.5-5.1)
[2024-07-23 07:33] LABS: BLOOD UREA NITROGEN 49.9 mg/dL (7-18); CALCIUM 8.1 mg/dL (8.5-10.1)
[2024-07-23 07:34] LABS: ALBUMIN 1.8 g/dl (3.4-5.0)
[2024-07-23 07:37] LABS: CREATININE 6.5 mg/dL (0.55-1.3); PHOSPHOROUS 6.3 mg/dL (2.5-4.9)
[2024-07-23 07:38] LABS: BILIRUBIN,TOTAL 0.3 mg/dL (0.2-1); TOT PROT 5.1 g/dl (6.4-8.2)
[2024-07-23 09:46] VITALS: BP 162/75; PULSE 80
[2024-07-27 09:17] LABS: FECAL WEIGHT TOTAL SEE FILE
== END 2024-07-23 11:15 | disposition home or self-care (01) | DRG 73 ==
LOC: JER 08:50 → JERBED 12:38 → J4S 16:58
PROVIDERS: ADMIT Student in an Organized Health Care Education/Training Program; ATTEND Internal Medicine
PROC: 30233N1 Transfusion of Nonautologous Red Blood Cells into Peripheral Vein, Percutaneous Approach (ICD-10-PCS; principal; 2024-07-10)
PROC: 0TB13ZX Excision of Left Kidney, Percutaneous Approach, Diagnostic (ICD-10-PCS; 2024-07-19)
DX: E11.43 Type 2 diabetes mellitus with diabetic autonomic (poly)neuropathy (principal); K31.84 Gastroparesis; N17.0 Acute kidney failure with tubular necrosis; I16.1 Hypertensive emergency; J90 Pleural effusion, not elsewhere classified; I31.39 Other pericardial effusion (noninflammatory); I16.9 Hypertensive crisis, unspecified; E11.21 Type 2 diabetes mellitus with diabetic nephropathy; R11.2 Nausea with vomiting, unspecified; K52.89 Other specified noninfective gastroenteritis and colitis; I25.10 Atherosclerotic heart disease of native coronary artery without angina pectoris; I25.2 Old myocardial infarction; R80.9 Proteinuria, unspecified; R00.0 Tachycardia, unspecified; D50.9 Iron deficiency anemia, unspecified; K21.9 Gastro-esophageal reflux disease without esophagitis
CPT/HCPCS: 0241U-QW; 36415; 36430; 36511; 50200-LT; 70450-TC; 71045-TC-FY; 71250-TC; 74176-TC; 74240-TC-FY; 76705-TC; 76775-TC; 76942-TC; 80048; 80053; 80061; 81003; 82272; 82570; 82607; 82710; 82728; 82747; 82962; 82977; 83036; 83516; 83520; 83540; 83550; 83690; 83735; 83880; 83993; 84100; 84155; 84156; 84165; 84300; 84443; 84484; 84702; 84703; 85014; 85025; 85027; 85045; 85610; 85730; 86038; 86140; 86160; 86225; 86256; 86704; 86708; 86803; 86850; 86900; 86901; 86922; 87081; 87086; 87340; 87517; 88300-TC; 88329; 93005; 93010; 93306-TC; 97116-GP; 97161-GP; 99291; J0131; J1644; J1756; P9038; P9058; Q0162

== ENCOUNTER 2025-02-16 16:07 | Inpatient (IN) | payer OTHER ==
[2025-02-16 17:52] LABS: ABSOLUTE IMMATURE GRANULOCYTES 0.02 x10^3/uL (0.0-0.031); BASOPHILS # 0.04 x10^3/uL (0.01-0.08); EOSINOPHIL % 8.9 % (0.7-5.8); EOSINOPHILS # 0.64 x10^3/uL (0.04-0.36); MCHC 31.3 g/dl (32.2-35.5); MEAN CELL VOLUME 88.1 fl (79.4-94.8); MEAN PLT VOLUME 9.5 fl (9.4-12.3); MONOCYTE # 0.42 x10^3/uL (0.24-0.86); MONOCYTE % 5.8 % (4.7-12.5); RDW 17.6 % (12.2-17.1)
[2025-02-16 18:01] LABS: INR 1.15 (0.83-1.09); PROTHROMBIN TIME (PATIENT) 12.6 SEC (9.7-13.0)
[2025-02-16 18:04] LABS: ACTIVATED PTT 32.6 SECONDS (25.2-36.5)
[2025-02-16 18:58] LABS: GLUCOSE,RANDOM 106 mg/dL (74-106); TOT PROT 5.4 g/dl (6.4-8.2)
[2025-02-16 18:59] LABS: CO2 22 mmol/L (21-32)
[2025-02-16 19:01] LABS: ALK PHOS 122 U/L (40-150)
[2025-02-16 19:04] LABS: CREATININE 8.49 mg/dL (0.55-1.3); SGOT/AST 16 U/L (5-34); SGPT/ALT 15 U/L (0-55)
[2025-02-16 19:22] LABS: HCV DIAGNOSTIC IN-HOUSE W/RFLX NON-REACTIVE (NONREACTIVE); HIV INTERPRETATION NEGATIVE (NEGATIVE)
[2025-02-16] MEDS ORDERED: LABETALOL HCL 400 MG PO SCH (22:15)
[2025-02-16] MEDS ORDERED: hydrALAZINE HCL 25 MG TABLET (FP) ONE (22:50)
[2025-02-16] MEDS ORDERED: ACETAMINOPHEN INJECTION 100 ML ONE (23:04)
[2025-02-16] MEDS: ACETAMINOPHEN 1000 MG/100 ML BAG IVPB ONE (23:18)
[2025-02-16] MEDS: hydrALAZINE HCL 50 MG TABLET (FP) PO SCH (23:18)
[2025-02-17 01:10] VITALS: BMI 25.7
[2025-02-17] MEDS: LABETALOL HCL 5 MG/1 ML (100MG/20 ML VIAL) IVPUSH ONE (04:33)
[2025-02-17] MEDS ORDERED: CALCIUM ACETATE 667 MG CAPSULE (FP) PO SCH (08:00)
[2025-02-17 08:11] LABS: MCHC 31.8 g/dl (32.2-35.5); MEAN CELL VOLUME 86.8 fl (79.4-94.8); MEAN PLT VOLUME 9.7 fl (9.4-12.3); RDW 17.0 % (12.2-17.1)
[2025-02-17 08:59] LABS: GLUCOSE,RANDOM 93 mg/dL (74-106)
[2025-02-17 09:01] LABS: CO2 21 mmol/L (21-32)
[2025-02-17 09:05] LABS: CREATININE 8.74 mg/dL (0.55-1.3); IRON SERUM 60 ug/dL (50-175)
[2025-02-17] MEDS: LOSARTAN POTASSIUM 50 MG TABLET PO SCH (09:29)
[2025-02-17] MEDS: CLOPIDOGREL BISULFATE 75 MG TABLET (FP) PO SCH (09:29)
[2025-02-17] MEDS: SERTRALINE HCL 50 MG TABLET (FP) PO SCH (09:29)
[2025-02-17] MEDS: TORSEMIDE 20 MG TABLET (FP) PO SCH (09:29)
[2025-02-17] MEDS: amLODIPine BESYLATE 10 MG TABLET (FP) PO SCH (09:30)
[2025-02-17] MEDS: SEVELAMER CARBONATE 800 MG TAB (FP) PO SCH ×2 (09:33→19:14)
[2025-02-17] MEDS ORDERED: SODIUM BICARBONATE 650 MG TABLET PO SCH (10:00)
[2025-02-17] MEDS ORDERED: LISINOPRIL 5 MG TABLET PO SCH (10:00)
[2025-02-17] MEDS ORDERED: hydrALAZINE HCL 25 MG TABLET (FP) PO SCH (10:47)
[2025-02-17] MEDS: hydrALAZINE HCL 25 MG TABLET (FP) PO ONE (11:50)
[2025-02-17] MEDS: PERITONEAL DIALYSIS 2.5% SOLN 2,500 ML IP SCH (18:28)
[2025-02-17] MEDS: hydrALAZINE HCL 50 MG TABLET (FP) PO ONE (20:29)
[2025-02-17] MEDS: ATORVASTATIN CA 80 MG TABLET (FP) PO SCH (21:04)
[2025-02-17] MEDS: guaiFENesin 200 MG/10 ML 10 ML UNIT-DOSE CUPS PO PRN (21:15)
[2025-02-17] MEDS: hydrALAZINE HCL 25 MG TABLET (FP) PO SCH (21:56)
[2025-02-17] MEDS ORDERED: ATORVASTATIN CA 80 MG TABLET (FP) PO SCH (22:00)
[2025-02-18] MEDS: amLODIPine BESYLATE 10 MG TABLET (FP) PO SCH (09:04)
[2025-02-18] MEDS: LOSARTAN POTASSIUM 50 MG TABLET PO SCH (09:05)
[2025-02-18] MEDS: PANTOPRAZOLE 40 MG TABLET PO SCH (09:05)
[2025-02-18] MEDS: SERTRALINE HCL 50 MG TABLET (FP) PO SCH (09:05)
[2025-02-18] MEDS: TORSEMIDE 20 MG TABLET (FP) PO SCH (09:05)
[2025-02-18] MEDS: CLOPIDOGREL BISULFATE 75 MG TABLET (FP) PO SCH (09:05)
[2025-02-18 13:11] LABS: ABSOLUTE IMMATURE GRANULOCYTES 0.02 x10^3/uL (0.0-0.031); BASOPHILS # 0.04 x10^3/uL (0.01-0.08); EOSINOPHIL % 10.8 % (0.7-5.8); EOSINOPHILS # 0.93 x10^3/uL (0.04-0.36); MCHC 33.0 g/dl (32.2-35.5); MEAN CELL VOLUME 86.2 fl (79.4-94.8); MEAN PLT VOLUME 9.2 fl (9.4-12.3); MONOCYTE # 0.43 x10^3/uL (0.24-0.86); MONOCYTE % 5.0 % (4.7-12.5); RDW 16.2 % (12.2-17.1)
[2025-02-18 13:43] LABS: GLUCOSE,RANDOM 194 mg/dL (74-106); TOT PROT 5.9 g/dl (6.4-8.2)
[2025-02-18 13:44] LABS: CO2 22 mmol/L (21-32)
[2025-02-18 13:46] LABS: ALK PHOS 126 U/L (40-150)
[2025-02-18 13:48] LABS: SGPT/ALT 14 U/L (0-55)
[2025-02-18 13:49] LABS: CREATININE 8.04 mg/dL (0.55-1.3); SGOT/AST 15 U/L (5-34)
[2025-02-18] MEDS: EPOETIN ALFA-EPBX 20,000 UNIT/ML VIAL SQ ONE (14:16)
[2025-02-18] MEDS: DOCUSATE SODIUM 100 MG CAPSULE (FP) PO ONE ×2 (14:16→14:18)
[2025-02-18] MEDS: hydrALAZINE HCL 50 MG TABLET (FP) PO SCH (14:18)
[2025-02-18 16:24] VITALS: BP 172/100; PULSE 83; RESP 16; TEMP 97.2
== END 2025-02-18 16:15 | disposition home or self-care (01) | DRG 682 ==
LOC: JER 16:07 → JERBED 20:50 → J8W 23:31 → OBSVTOIN 02-17 13:18 → J4S 02-17 15:20
PROVIDERS: ADMIT Student in an Organized Health Care Education/Training Program; ATTEND Nurse Practitioner Family
PROC: 30233N1 Transfusion of Nonautologous Red Blood Cells into Peripheral Vein, Percutaneous Approach (ICD-10-PCS; 2025-02-17)
PROC: 3E1M39Z Irrigation of Peritoneal Cavity using Dialysate, Percutaneous Approach (ICD-10-PCS; principal; 2025-02-18)
DX: I12.0 Hypertensive chronic kidney disease with stage 5 chronic kidney disease or end stage renal disease (principal); N18.6 End stage renal disease; D63.1 Anemia in chronic kidney disease; I25.10 Atherosclerotic heart disease of native coronary artery without angina pectoris; E11.22 Type 2 diabetes mellitus with diabetic chronic kidney disease; E78.5 Hyperlipidemia, unspecified
CPT/HCPCS: 36415; 36430; 71045-TC-FY; 80048; 80053; 82272; 82607; 82728; 82747; 82962; 83036; 83540; 83550; 83735; 84100; 84466; 85014; 85025; 85027; 85610; 85730; 86803; 86850; 86900; 86901; 86922; 87389; 87637-QW; 99285-25; G0378; P9058